=== PATIENT | female | born 1990 | race Caucasian/White ===

== ENCOUNTER 2019-10-24 14:34 | Inpatient (IN) | payer OTHER ==
--- NOTE | 2019-10-24 15:56 | BHS.RME ---
Substance Use & Tx History - Substance Use History Alcohol Substance amount: 6-10 beers x 16 oz each, rare whiskey Frequency of use: Daily Date of Last Use: 10/23/19 Physical/Psych/Mental Status - Behavior Eye Contact: Normal - Cooperativeness Cooperativeness: Cooperative - Thinking Thought Processes: Tight Thought content: Future oriented - Physical Health Problems Is patient presently having any pain?: No Does patient presently have any injuries (include location): No Does patient currently have a fever: No CIWA Nausea/Vomitin-No Nausea/No Vomiting Muscle Tremors: 3 Anxiety: 3 Agitation: 2 Paroxysmal Sweats: 3 Orientation: 0-Oriented Tacttile Disturbances: 0-None Auditory Disturbances: 0-None Visual Disturbances: 1-Very Mild Sensitivity Headache: 0-None Present CIWA-Ar Total Score: 12
[2019-10-24 16:32] VITALS: BMI 30.4
--- NOTE | 2019-10-24 17:41 | HP ---
CIWA Score Nausea/Vomitin-Mild Nausea/No Vomiting Muscle Tremors: 2 Anxiety: 3 Agitation: 3 Paroxysmal Sweats: 3 Orientation: 0-Oriented Tacttile Disturbances: 0-None Auditory Disturbances: 0-None Visual Disturbances: 1-Very Mild Sensitivity Headache: 0-None Present CIWA-Ar Total Score: 13 - Admission Criteria [facility]ASAS Guidelines: Admission for Medically Managed Detox: Requires at least one of the followin. CIWA greater than 12 2. Seizures within the past 24 hours 3. Delirium tremens within the past 24 hours 4. Hallucinations within the past 24 hours 5. Acute intervention needed for co occurring medical disorder 6. Acute intervention needed for co occurring psychiatric disorder 7. Severe withdrawal that cannot be handled at a lower level of care (continued vomiting, continued diarrhea, abnormal vital signs) requiring intravenous medication and/or fluids 8. Admitting History and Physical - Past Medical History ...: No - Smoking History Smoking history: Current every day smoker Have you smoked in the past 12 months: Yes Aproximately how many cigarettes per day: 6 Admission ROS [facility] Chief Complaint: Alcohol withdrawal symptoms Allergies/Adverse Reactions: Allergies Allergy/AdvReac Type Severity Reaction Status Date / Time No Known Allergies Allergy Verified 10/24/19 16:26 History of Present Illness: 29 years old female with eleven years of alcohol dependence is seeking admission to detox. Patient denies prior detoxification and this is her first admission to [facility]. She reports insignificant period of sobriety. Patient denies medical history, psych. history and suicidal attempt / suicidal ideation at this time. She is unemployed and lives at [facility] residential for [facility]. Patient reports feeling depressed and anxious but has not been able to see a psychiatrist. She is requesting for psych. evaluation. Exam Limitations: No Limitations - Ebola screening Have you traveled outside of the country in the last 21 days: No Have you had contact with anyone from an Ebola affected area: No Do you have a fever: No - Review of Systems Constitutional: Loss of Appetite, Malaise, Night Sweats, Changes in sleep EENT: reports: Tinnitus Respiratory: reports: No Symptoms reported Cardiac: reports: No Symptoms Reported GI: reports: Nausea, Poor Appetite, Poor Fluid Intake, Vomiting Musculoskeletal: reports: Back Pain (bilateral knee pain), Other (knee pain) Integumentary: reports: Dryness, Flushing Neuro: reports: Headache, Tremors Endocrine: reports: No Symptoms Reported Hematology: reports: No Symptoms Reported Psychiatric: reports: Orientated x3, Anxious, Depressed Other Systems: Reviewed and Negative Patient History - Patient Medical History Hx Anemia: No Hx Asthma: No Hx Chronic Obstructive Pulmonary Disease (COPD): No Hx Cancer: No Hx Cardiac Disorders: No Hx Congestive Heart Failure: No Hx Hypertension: No Hx Hypercholesterolemia: No Hx Pacemaker: No HX Cerebrovascular Accident: No Hx Seizures: No Hx Dementia: No Hx Diabetes: No Hx Gastrointestinal Disorders: No Hx Liver Disease: No Hx Genitourinary Disorders: No Hx Sexually Transmitted Disorders: No Hx Renal Disease (ESRD): No Hx Thyroid Disease: No Hx Human Immunodeficiency Virus (HIV): No (Requesting to be tested) Hx Hepatitis C: No Hx Suicide Attempt: No Hx Bipolar Disorder: No Hx Schizophrenia: No - Patient Surgical History Past Surgical History: Yes Hx Neurologic Surgery: No Hx Cataract Extraction: No Hx Cardiac Surgery: No Hx Lung Surgery: No Hx Breast Surgery: No Hx Breast Biopsy: No Hx Abdominal Surgery: No Hx Appendectomy: No Hx Cholecystectomy: No Hx Genitourinary Surgery: No Hx Section: No Hx Orthopedic Surgery: No Other Surgical History: right deltoid birthmark removed. Anesthesia Reaction: No - PPD History Previous Implant?: No Implanted On Prior R Admission?: No PPD to be Administered?: Yes - Reproductive History Patient is a Female of Child Bearing Age (11 -55 yrs old): Yes Last Menstrual Period: 09/23/19 Patient : No - Smoking Cessation Smoking history: Current every day smoker Have you smoked in the past 12 months: Yes Aproximately how many cigarettes per day: 6 Hx Chewing Tobacco Use: No Initiated information on smoking cessation: Yes 'Breaking Loose' booklet given: 10/24/19 - Substance & Tx. History Hx Alcohol Use: Yes Hx Substance Use: No Substance Use Type: Alcohol Hx Substance Use Treatment: No - Substances abused Alcohol Substance route: Oral Frequency: Daily Amount used: 6-10 of 16-20 ounces beers. Age of first use: 17 Date of last use: 10/23/19 Admission Physical Exam BHS - Vital Signs Vital Signs: Vital Signs - 24 hr 10/24/19 16:26 Temperature 98.0 F Pulse Rate 118 H Respiratory 18 Rate Blood Pressure 128/85 - Physical General Appearance: Yes: Moderate Distress, Tremorous, Irritable, Sweating, Anxious HEENTM: Yes: Within Normal Limits Respiratory: Yes: Lungs Clear, Normal Breath Sounds, No Respiratory Distress Neck: Yes: Supple Breast: Yes: Breast Exam Deferred Cardiology: Yes: Tachycardia Abdominal: Yes: Normal Bowel Sounds, Protuberent Genitourinary: Yes: Within Normal Limits Back: Yes: Normal Inspection Musculoskeletal: Yes: Back pain, Other (bilateral kn ee pain) Extremities: Yes: Tremors Integumentary: Yes: Warm Lymphatic: Yes: Within Normal Limits - Diagnostic (1) Alcohol dependence, uncomplicated Current Visit: Yes Status: Acute (2) Nicotine dependence Current Visit: Yes Status: Chronic Qualifiers: Nicotine product type: cigarettes Substance use status: uncomplicated Qualified Code(s): F17.210 - Nicotine dependence, cigarettes, uncomplicated (3) Depression Current Visit: Yes Status: Acute Qualifiers: Depression Type: unspecified Qualified Code(s): F32.9 - Major depressive disorder, single episode, unspecified (4) Anxiety Current Visit: Yes Status: Acute Cleared for Admission [facility] - Detox or Rehab [facility] Level of Care: Medically Managed Detox Regimen/Protocol: Librium Claeared for Rehab Admission: No Breathalyzer - Breathalyzer Breathalyzer: 0.118 Urine Drug Screen - Test Device Lot number: [id number] Expiration date: 08/02/21 - Control Is test valid?: Yes - Results Drug screen NEGATIVE: Yes Inpatient Rehab Admission - Rehab Decision to Admit Inpatient rehab admission?: No
[2019-10-24] MEDS ORDERED: BISMUTH SUBSALICYLATE 524 MG/30 ML UD PO PRN (17:54)
[2019-10-24] MEDS ORDERED: MAGNESIUM HYDROX 2400MG/30ML ORAL SUSPENSION 30 ML CUP PO PRN (17:54)
[2019-10-24] MEDS ORDERED: METHOCARBAMOL 500 MG TABLET PO PRN (17:54)
[2019-10-24] MEDS ORDERED: hydrOXYzine PAMOATE 25 MG CAPSULE (FP) PO PRN (17:54)
[2019-10-24] MEDS ORDERED: MENTHOL/PHENOL 1 EACH UD MM PRN (17:54)
[2019-10-24] MEDS ORDERED: NICOTINE POLACRILEX 2 MG GUM BUC PRN (17:54)
[2019-10-24] MEDS ORDERED: ACETAMINOPHEN 325 MG TABLET (FP) PO PRN ×2 (17:54)
[2019-10-24] MEDS ORDERED: MAGNESIUM CITRATE 300 ML BOTTLE PO PRN (17:54)
[2019-10-24] MEDS ORDERED: MAG HYDROX/AL HYDROX/SIMETH 30 ML UNIT-DOSE CUP PO PRN (17:54)
[2019-10-24] MEDS: IBUPROFEN 400 MG TABLET (FP) PO PRN (19:04)
[2019-10-24] MEDS: chlordiazePOXIDE HCL 10 MG CAPSULE PO PRN (19:05)
[2019-10-24] MEDS: chlordiazePOXIDE HCL 25 MG CAPSULE PO SCH (22:23)
[2019-10-24] MEDS: THIAMINE HCL 100 MG TABLET (FP) PO SCH (22:23)
[2019-10-25] MEDS: chlordiazePOXIDE HCL 25 MG CAPSULE PO SCH ×3 (06:12→22:32)
[2019-10-25 09:35] LABS: HEMATOCRIT 39.1 % (32.4-45.2); HEMOGLOBIN 13.2 GM/dL (10.7-15.3); MCH 32.1 pg (25.7-33.7); MCHC 33.8 g/dl (32.0-36.0); MEAN PLT VOLUME 8.4 fl (7.5-11.1); PLATELET COUNT 238 K/MM3 (134-434); RBC 4.11 M/mm3 (3.60-5.2); RDW 13.3 % (11.6-15.6); WHITE BLOOD COUNT 4.8 K/mm3 (4.0-10.0)
[2019-10-25 09:52] LABS: ALBUMIN 3.7 g/dl (3.4-5.0); BILIRUBIN,TOTAL 0.7 mg/dL (0.2-1); BLOOD UREA NITROGEN 9.9 mg/dL (7-18); CALCIUM 8.7 mg/dL (8.5-10.1); CREATININE 0.9 mg/dL (0.55-1.3); POTASSIUM 3.8 mmol/L (3.5-5.1); TOT PROT 6.5 g/dl (6.4-8.2)
[2019-10-25] MEDS: PRENATAL VITAMINS W/ FOLIC ACID TABLET (FP) PO SCH (10:42)
[2019-10-25] MEDS: NICOTINE 14 MG/24 HOURS TOPICAL PATCH TD SCH (10:42)
--- NOTE | 2019-10-25 12:00 | PN ---
S CIWA - CIWA Score Nausea/Vomitin-No Nausea/No Vomiting Muscle Tremors: 2 Anxiety: 3 Agitation: 0-Normal Activity Paroxysmal Sweats: 3 Orientation: 0-Oriented Tacttile Disturbances: 0-None Auditory Disturbances: 0-None Visual Disturbances: 0-None Headache: 2-Mild CIWA-Ar Total Score: 10 S Progress Note (SOAP) Subjective: c/o sweats, headache, and anxiety. Objective: 10/25/19 11:59 Vital Signs 10/25/19 10/25/19 07:50 09:27 Temperature 96.4 F L 97.3 F L Pulse Rate 75 84 Respiratory 16 18 Rate Blood Pressure 113/70 117/74 Laboratory Last Values WBC 4.8 K/mm3 (4.0-10.0) 10/25/19 07:00 RBC 4.11 M/mm3 (3.60-5.2) 10/25/19 07:00 Hgb 13.2 GM/dL (10.7-15.3) 10/25/19 07:00 Hct 39.1 % (32.4-45.2) 10/25/19 07:00 MCV 95.0 fl (80-96) 10/25/19 07:00 MCH 32.1 pg (25.7-33.7) 10/25/19 07:00 MCHC 33.8 g/dl (32.0-36.0) 10/25/19 07:00 RDW 13.3 % (11.6-15.6) 10/25/19 07:00 Plt Count 238 K/MM3 (134-434) 10/25/19 07:00 MPV 8.4 fl (7.5-11.1) 10/25/19 07:00 Sodium 140 mmol/L (136-145) 10/25/19 07:00 Potassium 3.8 mmol/L (3.5-5.1) 10/25/19 07:00 Chloride 109 mmol/L (98-107) H 10/25/19 07:00 Carbon Dioxide 26 mmol/L (21-32) 10/25/19 07:00 Anion Gap 5 MMOL/L (8-16) L 10/25/19 07:00 BUN 9.9 mg/dL (7-18) 10/25/19 07:00 Creatinine 0.9 mg/dL (0.55-1.3) 10/25/19 07:00 Est GFR (CKD-EPI)AfAm 100.14 10/25/19 07:00 Est GFR (CKD-EPI)NonAf 86.41 10/25/19 07:00 Random Glucose 81 mg/dL (74-106) 10/25/19 07:00 Calcium 8.7 mg/dL (8.5-10.1) 10/25/19 07:00 Total Bilirubin 0.7 mg/dL (0.2-1) 10/25/19 07:00 AST 20 U/L (15-37) 10/25/19 07:00 ALT 27 U/L (13-61) 10/25/19 07:00 Alkaline Phosphatase 51 U/L (45-117) 10/25/19 07:00 Total Protein 6.5 g/dl (6.4-8.2) 10/25/19 07:00 Albumin 3.7 g/dl (3.4-5.0) 10/25/19 07:00 RPR Titer Nonreactive (NONREACTIVE) 10/25/19 07:00 HIV 1&2 Antibody Screen Negative 10/25/19 07:30 HIV P24 Antigen Negative 10/25/19 07:30 Labs noted. Assessment: 10/25/19 11:59 AOX3, in no acute respiratory distress. Full ROM, ambulating in the unit. Withdrawal symptoms. Plan: continue detox.
--- NOTE | 2019-10-25 12:38 | CONSULT ---
[facility] Psychiatric Consult - Data Date of interview: 10/25/19 Admission source: [facility] Identifying data: First visit to [facility] and admission to [address] [place] [address] for this 29 y/o female self-referred for detoxification treatment. EMIGDIO issues : alcohol, nicotine. Patient is single, no dependents, unemployed and supported, occasionally, by relatives. Substance Abuse History: Discussed with patient. Details in current [facility] report as follows : Smoking history: Current every day smoker. Have you smoked in the past 12 months: Yes. Aproximately how many cigarettes per day: 6. Hx Chewing Tobacco Use: No. Initiated information on smoking cessation: Yes. 'Breaking Loose' booklet given: 10/24/19. - Substance & Tx. History. Hx Alcohol Use: Yes. Hx Substance Use: No. Substance Use Type: Alcohol. Hx Substance Use Treatment: No. - Substances abused. Alcohol. Substance route: Oral. Frequency: Daily. Amount used: 6-10 of 16-20 ounces beers. Age of first use: 17. Date of last use: 10/23/19 Medical History: Patient endorses good general health. Psychiatric History: Patient denies history of psychiatric hospitalizations. Denies being on psychotropic medications. No contact with psychiatric OPD care providers. Ms Piper " suspects " that she has an anxiety disorder (not formally diagnosed). She admits to several episodes of self-mutilation (scars are visible on left forearm). No cutting for past two years (self-report). Physical/Sexual Abuse/Trauma History: Not discussed. Patient declines. Additional Comment: Negative toxicology. Mental Status Exam - Mental Status Exam Alert and Oriented to: Time, Place, Person Cognitive Function: Good Patient Appearance: Well Groomed Mood: Hopeful, Euthymic Affect: Appropriate, Normal Range Patient Behavior: Appropriate, Cooperative Speech Pattern: Clear, Appropriate Voice Loudness: Normal Thought Process: Intact, Goal Oriented Thought Disorder: Not Present Hallucinations: Denies Suicidal Ideation: Denies Homicidal Ideation: Denies Insight/Judgement: Poor Sleep: Well Appetite: Good Gait/Station: Normal Psychiatric Findings - Problem List ([place] 1, 2,3) (1) Alcohol use disorder Status: Chronic (2) Nicotine dependence Status: Acute Qualifiers: Nicotine product type: cigarettes Substance use status: in withdrawal Qualified Code(s): F17.213 - Nicotine dependence, cigarettes, with withdrawal (3) Mood disorder Status: Suspected - Initial Treatment Plan Initial Treatment Plan: Psychoeducation. Sleep hygiene. AA meetings. Detoxification. Support. ETOH-MAT services explained to patient : marginally receptive. Observation.
[2019-10-25] MEDS: chlordiazePOXIDE HCL 10 MG CAPSULE PO PRN (17:28)
[2019-10-25] MEDS: IBUPROFEN 400 MG TABLET (FP) PO PRN (17:29)
[2019-10-25] MEDS: THIAMINE HCL 100 MG TABLET (FP) PO SCH (22:32)
[2019-10-26] MEDS: chlordiazePOXIDE 5 MG CAPSULE PO SCH ×3 (06:18→22:13)
--- NOTE | 2019-10-26 09:37 | PN ---
S CIWA - CIWA Score Nausea/Vomitin-No Nausea/No Vomiting Muscle Tremors: 2 Anxiety: 2 Agitation: 0-Normal Activity Paroxysmal Sweats: 2 Orientation: 0-Oriented Tacttile Disturbances: 0-None Auditory Disturbances: 0-None Visual Disturbances: 1-Very Mild Sensitivity Headache: 1-Very Mild CIWA-Ar Total Score: 8 S Progress Note (SOAP) Subjective: 29 years old female admitted on 10/24/19 for alcohol withdrawal sx management treating with librium regiment alert feeling tired prefers to stay in bed little longer encourage the patient to attend behavior and psychosocial therapies groups and meetings while in detox Objective: 10/26/19 09:38 Vital Signs Temperature 97.9 F 10/26/19 08:32 Pulse Rate 83 10/26/19 08:32 Respiratory Rate 18 10/26/19 08:32 Blood Pressure 130/72 10/26/19 08:32 O2 Sat by Pulse Oximetry (%) Laboratory Last Values WBC 4.8 K/mm3 (4.0-10.0) 10/25/19 07:00 RBC 4.11 M/mm3 (3.60-5.2) 10/25/19 07:00 Hgb 13.2 GM/dL (10.7-15.3) 10/25/19 07:00 Hct 39.1 % (32.4-45.2) 10/25/19 07:00 MCV 95.0 fl (80-96) 10/25/19 07:00 MCH 32.1 pg (25.7-33.7) 10/25/19 07:00 MCHC 33.8 g/dl (32.0-36.0) 10/25/19 07:00 RDW 13.3 % (11.6-15.6) 10/25/19 07:00 Plt Count 238 K/MM3 (134-434) 10/25/19 07:00 MPV 8.4 fl (7.5-11.1) 10/25/19 07:00 Sodium 140 mmol/L (136-145) 10/25/19 07:00 Potassium 3.8 mmol/L (3.5-5.1) 10/25/19 07:00 Chloride 109 mmol/L (98-107) H 10/25/19 07:00 Carbon Dioxide 26 mmol/L (21-32) 10/25/19 07:00 Anion Gap 5 MMOL/L (8-16) L 10/25/19 07:00 BUN 9.9 mg/dL (7-18) 10/25/19 07:00 Creatinine 0.9 mg/dL (0.55-1.3) 10/25/19 07:00 Est GFR (CKD-EPI)AfAm 100.14 10/25/19 07:00 Est GFR (CKD-EPI)NonAf 86.41 10/25/19 07:00 Random Glucose 81 mg/dL (74-106) 10/25/19 07:00 Calcium 8.7 mg/dL (8.5-10.1) 10/25/19 07:00 Total Bilirubin 0.7 mg/dL (0.2-1) 10/25/19 07:00 AST 20 U/L (15-37) 10/25/19 07:00 ALT 27 U/L (13-61) 10/25/19 07:00 Alkaline Phosphatase 51 U/L (45-117) 10/25/19 07:00 Total Protein 6.5 g/dl (6.4-8.2) 10/25/19 07:00 Albumin 3.7 g/dl (3.4-5.0) 10/25/19 07:00 RPR Titer Nonreactive (NONREACTIVE) 10/25/19 07:00 HIV 1&2 Antibody Screen Negative 10/25/19 07:30 HIV P24 Antigen Negative 10/25/19 07:30 lab noted Assessment: 10/26/19 09:38 alcohol withdrawal Plan: librium regiment
[2019-10-26] MEDS: NICOTINE 14 MG/24 HOURS TOPICAL PATCH TD SCH (10:29)
[2019-10-26] MEDS: PRENATAL VITAMINS W/ FOLIC ACID TABLET (FP) PO SCH (10:29)
[2019-10-26] MEDS: IBUPROFEN 400 MG TABLET (FP) PO PRN (17:37)
[2019-10-26] MEDS: THIAMINE HCL 100 MG TABLET (FP) PO SCH (22:13)
[2019-10-26] MEDS: MELATONIN 5 MG TABLETS PO PRN (22:13)
[2019-10-27] MEDS ORDERED: chlordiazePOXIDE HCL 10 MG CAPSULE PO PRN
[2019-10-27] MEDS: chlordiazePOXIDE HCL 10 MG CAPSULE PO SCH ×3 (05:54→22:19)
--- NOTE | 2019-10-27 08:58 | PN ---
[facility] CIWA - CIWA Score Nausea/Vomitin-No Nausea/No Vomiting Muscle Tremors: 1-None Visible, but [place] Anxiety: 2 Agitation: 0-Normal Activity Paroxysmal Sweats: 1-Minimal Palms Moist Orientation: 0-Oriented Tacttile Disturbances: 0-None Auditory Disturbances: 0-None Visual Disturbances: 0-None Headache: 0-None Present CIWA-Ar Total Score: 4 S Progress Note (SOAP) Subjective: 29 years old female admitted on 10/24/19 for alcohol withdrawal sx management treating with librium detox regiment feeling better today less tremor mild anxiety encourage the patient to attend behavior and psychosocial therapies groups and meetings while in detox as part of alcohol recovery Objective: 10/27/19 08:57 Vital Signs Temperature 97.4 F L 10/27/19 07:33 Pulse Rate 57 L 10/27/19 07:33 Respiratory Rate 16 10/27/19 07:33 Blood Pressure 106/65 10/27/19 07:33 O2 Sat by Pulse Oximetry (%) Vital Signs Laboratory Last Values WBC 4.8 K/mm3 (4.0-10.0) 10/25/19 07:00 RBC 4.11 M/mm3 (3.60-5.2) 10/25/19 07:00 Hgb 13.2 GM/dL (10.7-15.3) 10/25/19 07:00 Hct 39.1 % (32.4-45.2) 10/25/19 07:00 MCV 95.0 fl (80-96) 10/25/19 07:00 MCH 32.1 pg (25.7-33.7) 10/25/19 07:00 MCHC 33.8 g/dl (32.0-36.0) 10/25/19 07:00 RDW 13.3 % (11.6-15.6) 10/25/19 07:00 Plt Count 238 K/MM3 (134-434) 10/25/19 07:00 MPV 8.4 fl (7.5-11.1) 10/25/19 07:00 Sodium 140 mmol/L (136-145) 10/25/19 07:00 Potassium 3.8 mmol/L (3.5-5.1) 10/25/19 07:00 Chloride 109 mmol/L (98-107) H 10/25/19 07:00 Carbon Dioxide 26 mmol/L (21-32) 10/25/19 07:00 Anion Gap 5 MMOL/L (8-16) L 10/25/19 07:00 BUN 9.9 mg/dL (7-18) 10/25/19 07:00 Creatinine 0.9 mg/dL (0.55-1.3) 10/25/19 07:00 Est GFR (CKD-EPI)AfAm 100.14 10/25/19 07:00 Est GFR (CKD-EPI)NonAf 86.41 10/25/19 07:00 Random Glucose 81 mg/dL (74-106) 10/25/19 07:00 Calcium 8.7 mg/dL (8.5-10.1) 10/25/19 07:00 Total Bilirubin 0.7 mg/dL (0.2-1) 10/25/19 07:00 AST 20 U/L (15-37) 10/25/19 07:00 ALT 27 U/L (13-61) 10/25/19 07:00 Alkaline Phosphatase 51 U/L (45-117) 10/25/19 07:00 Total Protein 6.5 g/dl (6.4-8.2) 10/25/19 07:00 Albumin 3.7 g/dl (3.4-5.0) 10/25/19 07:00 RPR Titer Nonreactive (NONREACTIVE) 10/25/19 07:00 HIV 1&2 Antibody Screen Negative 10/25/19 07:30 HIV P24 Antigen Negative 10/25/19 07:30 lab noted Assessment: 10/27/19 08:58 alcohol withdrawal Plan: librium regiment
[2019-10-27] MEDS: NICOTINE 14 MG/24 HOURS TOPICAL PATCH TD SCH (10:07)
[2019-10-27] MEDS: PRENATAL VITAMINS W/ FOLIC ACID TABLET (FP) PO SCH (10:07)
--- NOTE | 2019-10-27 10:10 | EKG ---
Test Reason : Blood Pressure : / mmHG Vent. Rate : 081 BPM Atrial Rate : 081 BPM P-R Int : 146 ms QRS Dur : 086 ms QT Int : 388 ms P-R-T Axes : -22 145 138 degrees QTc Int : 450 ms NORMAL SINUS RHYTHM RIGHT AXIS DEVIATION NONSPECIFIC T WAVE ABNORMALITY ABNORMAL ECG NO PREVIOUS ECGS AVAILABLE Confirmed by Marielle Sterling ([id number]) on 10/27/2019 10:09:50 AM Referred By: SUE CHEUNG Confirmed By:Marielle Sterling
[2019-10-27] MEDS: THIAMINE HCL 100 MG TABLET (FP) PO SCH (22:19)
[2019-10-27] MEDS: MELATONIN 5 MG TABLETS PO PRN (22:20)
[2019-10-28] MEDS ORDERED: chlordiazePOXIDE HCL 10 MG CAPSULE PO ONE (05:00)
[2019-10-28] MEDS: IBUPROFEN 400 MG TABLET (FP) PO PRN (06:09)
[2019-10-28] MEDS: PRENATAL VITAMINS W/ FOLIC ACID TABLET (FP) PO SCH (09:20)
[2019-10-28] MEDS: NICOTINE 14 MG/24 HOURS TOPICAL PATCH TD SCH (09:21)
[2019-10-28 09:28] VITALS: BP 118/77; PULSE 100; TEMP 97
--- NOTE | 2019-10-28 14:18 | DS ---
[facility] Detox Discharge Summary Admission Date: 10/24/19 Discharge Date: 10/28/19 - History Present History: Alcohol Dependence Additional Comments: 29 years old female admitted on 10/24/19 for alcohol withdrawal sx management treated with librium detox regiment Ms Piper has completed the librium regiment and is tolerated well seen by psychiatrist no medical intervention at this time not participate in behavior and psychosocial therapies groups and meetings while in detox alert oriented x 3 cardiac s1s2 regular rate rhythm respiratory clear lungs bilaterally on auscultation skin warm and dry Pertinent Past History: time for discharge 40 minutes - Physical Exam Results Vital Signs: Vital Signs Temperature 97 F L 10/28/19 08:40 Pulse Rate 100 H 10/28/19 08:40 Respiratory Rate 18 10/28/19 08:40 Blood Pressure 118/77 10/28/19 08:40 O2 Sat by Pulse Oximetry (%) Pertinent Admission Physical Exam Findings: alcohol withdrawal Vital Signs Temperature 97 F L 10/28/19 08:40 Pulse Rate 100 H 10/28/19 08:40 Respiratory Rate 18 10/28/19 08:40 Blood Pressure 118/77 10/28/19 08:40 O2 Sat by Pulse Oximetry (%) Laboratory Last Values WBC 4.8 K/mm3 (4.0-10.0) 10/25/19 07:00 RBC 4.11 M/mm3 (3.60-5.2) 10/25/19 07:00 Hgb 13.2 GM/dL (10.7-15.3) 10/25/19 07:00 Hct 39.1 % (32.4-45.2) 10/25/19 07:00 MCV 95.0 fl (80-96) 10/25/19 07:00 MCH 32.1 pg (25.7-33.7) 10/25/19 07:00 MCHC 33.8 g/dl (32.0-36.0) 10/25/19 07:00 RDW 13.3 % (11.6-15.6) 10/25/19 07:00 Plt Count 238 K/MM3 (134-434) 10/25/19 07:00 MPV 8.4 fl (7.5-11.1) 10/25/19 07:00 Sodium 140 mmol/L (136-145) 10/25/19 07:00 Potassium 3.8 mmol/L (3.5-5.1) 10/25/19 07:00 Chloride 109 mmol/L (98-107) H 10/25/19 07:00 Carbon Dioxide 26 mmol/L (21-32) 10/25/19 07:00 Anion Gap 5 MMOL/L (8-16) L 10/25/19 07:00 BUN 9.9 mg/dL (7-18) 10/25/19 07:00 Creatinine 0.9 mg/dL (0.55-1.3) 10/25/19 07:00 Est GFR (CKD-EPI)AfAm 100.14 10/25/19 07:00 Est GFR (CKD-EPI)NonAf 86.41 10/25/19 07:00 Random Glucose 81 mg/dL (74-106) 10/25/19 07:00 Calcium 8.7 mg/dL (8.5-10.1) 10/25/19 07:00 Total Bilirubin 0.7 mg/dL (0.2-1) 10/25/19 07:00 AST 20 U/L (15-37) 10/25/19 07:00 ALT 27 U/L (13-61) 10/25/19 07:00 Alkaline Phosphatase 51 U/L (45-117) 10/25/19 07:00 Total Protein 6.5 g/dl (6.4-8.2) 10/25/19 07:00 Albumin 3.7 g/dl (3.4-5.0) 10/25/19 07:00 POC Urine HCG, Qual Negative 10/24/19 16:15 RPR Titer Nonreactive (NONREACTIVE) 10/25/19 07:00 HIV 1&2 Antibody Screen Negative 10/25/19 07:30 HIV P24 Antigen Negative 10/25/19 07:30 lab noted - Treatment Hospital Course: Detox Protocol Followed, Detoxed Safely, Responded well, Discharged Condition Good, Rehab Referral Accepted Patient has Accepted a Rehab Referral to: community support approach - Medication Discharge Medications: Ambulatory Orders NK [No Known Home Medication] 10/24/19 - Diagnosis (1) Substance induced mood disorder Status: Suspected (2) Alcohol dependence, uncomplicated Status: Acute (3) Nicotine dependence Status: Acute Qualifiers: Nicotine product type: cigarettes Substance use status: in withdrawal Qualified Code(s): F17.213 - Nicotine dependence, cigarettes, with withdrawal - AMA Did Patient Leave Against Medical Advice: No CIWA Score - CIWA Score Nausea/Vomitin-No Nausea/No Vomiting Muscle Tremors: 1-None Visible, but [place] Anxiety: 1-Mildly Anxious Agitation: 0-Normal Activity Paroxysmal Sweats: No Perspiration Orientation: 0-Oriented Tacttile Disturbances: 0-None Auditory Disturbances: 0-None Visual Disturbances: 0-None Headache: 0-None Present CIWA-Ar Total Score: 2
== END 2019-10-28 10:01 | disposition home or self-care (01) | DRG 775 ==
LOC: YASAS 14:34 → Y3N 18:07
PROVIDERS: ADMIT Allergy & Immunology; ATTEND Allergy & Immunology
PROC: HZ2ZZZZ Detoxification Services for Substance Abuse Treatment (ICD-10-PCS; principal; 2019-10-24)
DX: F10.230 Alcohol dependence with withdrawal, uncomplicated (principal); F17.210 Nicotine dependence, cigarettes, uncomplicated; F19.24 Other psychoactive substance dependence with psychoactive substance-induced mood disorder; F39 Unspecified mood [affective] disorder; F32.9 Major depressive disorder, single episode, unspecified
CPT/HCPCS: 36415; 80053; 81025; 85027; 86593; 87389; 93005; 93010